=== PATIENT | female | born 1980 | race Two or more races ===

== ENCOUNTER 2022-04-10 06:42 | Day surgery (SDC) | payer OTHER ==
[~2022-04-10] VITALS: Ht 160 cm; Wt 90.7 kg
[~2022-04-10 06:42] MED LIST: SPRINTEC 28 DA1 EACH PO; [UNRECOGNIZED DRUG - OTHER]
== END 2022-04-10 17:30 | disposition home or self-care (01) ==
LOC: CIR.AMB 06:42
PROVIDERS: ATTEND Obstetrics & Gynecology
DX: N72 Inflammatory disease of cervix uteri (principal); Z88.0 Allergy status to penicillin; Z88.6 Allergy status to analgesic agent; Z20.822 Contact with and (suspected) exposure to COVID-19

== ENCOUNTER 2022-05-25 14:47 | Inpatient (IN) | payer OTHER ==
[~2022-05-25] VITALS: Ht 160 cm; Wt 88.5 kg
== END 2022-06-01 16:13 | disposition home or self-care (01) | DRG 743 ==
LOC: O/R 05-29 06:00 → OB/GYN 05-29 06:00 → EDSTATUS 05-29 09:42 → CIR.AMB 05-29 09:42 → OB/GYN 05-29 09:43
PROVIDERS: ADMIT Obstetrics & Gynecology; ATTEND Obstetrics & Gynecology
PROC: 0UT90ZZ Resection of Uterus, Open Approach (ICD-10-PCS; principal; 2022-05-29 07:00)
DX: D25.1 Intramural leiomyoma of uterus (principal); N72 Inflammatory disease of cervix uteri; Z20.822 Contact with and (suspected) exposure to COVID-19

== ENCOUNTER → 2025-02-24 | Emergency (ER) | payer OTHER | END | disposition home or self-care (01) | LOC: ER 12:20 | DX: N93.9 Abnormal uterine and vaginal bleeding, unspecified (principal) ==